=== PATIENT | female | born 1965 | race African-American/Black ===

== ENCOUNTER 2017-05-11 08:04 | Inpatient (IN) | payer MEDICAID ==
[2017-05-05 13:11] LABS: HEMATOCRIT 39.3 % (36.0-47.0); MEAN CORPUSCULAR HEMOGLOBIN 24.7 pg (27.0-33.4); MEAN CORPUSCULAR HGB CONC 33.1 g/dL (32.0-36.0); MEAN CORPUSCULAR VOLUME 75 fl (80-97); PLATELET COUNT 363 10^3/uL (150-450); RED BLOOD COUNT 5.27 10^6/uL (3.72-5.28); RED CELL DISTRIBUTION WIDTH 16.2 % (11.5-14.0); WHITE BLOOD COUNT 7.3 10^3/uL (4.0-10.5)
[2017-05-05 13:12] LABS: APPEARANCE,URINE SLIGHTLY-CLOUDY; BILIRUBIN,URINE NEGATIVE (NEGATIVE); COLOR,URINE YELLOW; GLUCOSE, URINE NEGATIVE (NEGATIVE); KETONES,URINE NEGATIVE (NEGATIVE); LEUKOCYTE ESTERASE,URINE NEGATIVE (NEGATIVE); NITRITE,URINE NEGATIVE (NEGATIVE); PROTEIN,URINE NEGATIVE (NEGATIVE); URINE SPECIFIC GRAVITY 1.025; UROBILINOGEN,URINE NEGATIVE mg/dL (<2.0)
[2017-05-05 13:28] LABS: ALANINE AMINOTRANSFERASE 24 U/L (9-52); ALBUMIN 3.7 g/dL (3.5-5.0); ALKALINE PHOSPHATASE 85 U/L (38-126); ANION GAP 9 (5-19); ASPARTATE AMINO TRANSFERASE 14 U/L (14-36); BILIRUBIN,DIRECT 0.3 mg/dL (0.0-0.4); BILIRUBIN,TOTAL 0.3 mg/dL (0.2-1.3); BLOOD UREA NITROGEN 11 mg/dL (7-20); CALCIUM 9.8 mg/dL (8.4-10.2); CARBON DIOXIDE 27 mmol/L (22-30); CHLORIDE 107 mmol/L (98-107); GLUCOSE 103 mg/dL (75-110); POTASSIUM 4.6 mmol/L (3.6-5.0); SODIUM 143.1 mmol/L (137-145); TOTAL PROTEIN 6.6 g/dL (6.3-8.2)
[~2017-05-11 08:04] MED LIST: ACETAMINOPHEN 100 ML IV ONE; CEFAZOLIN 2 GM/D5W RTU 2 GM/50 ML RTUPB IV PRN; FENTANYL CITRATE INJ/PF 250 MCG/5 ML AMPULE ONE; HYDROMORPHONE HCL INJ/PF 2 MG/ML AMPULE ONE; LACTATED RINGERS 1000 ML IV PRN; LIDOCAINE 0.5% INJ-PF (5 MG/ML) 50 ML SDV SUBCUT PRN; MIDAZOLAM 2 MG/2 ML INJ ONE; PROPOFOL INJ 200 MG/20 ML VIAL IV ONE
[2017-05-11] MEDS ORDERED: OXYCODONE-ACETAMINOPHEN 5-325 MG TABLET PO PRN (08:38)
[2017-05-11] MEDS ORDERED: HYDROMORPHONE HCL INJ/PF 2 MG/ML AMPULE IV PRN (08:38)
[2017-05-11] MEDS ORDERED: ACETAMINOPHEN 100 ML IV PRN (08:38)
[2017-05-11] MEDS ORDERED: PROMETHAZINE HCL INJ 25 MG/1 ML VIAL IV PRN ×2 (08:38→09:32)
[2017-05-11] MEDS ORDERED: FENTANYL CITRATE INJ/PF 100 MCG/2 ML AMPUL IV PRN ×3 (09:32)
[2017-05-11] MEDS ORDERED: MEPERIDINE HCL/PF INJ 25 MG/1 ML DISP.SYRIN IV PRN (09:32)
[2017-05-11] MEDS ORDERED: DIPHENHYDRAMINE HCL 50 MG/ML VIAL IV PRN (09:32)
[2017-05-11] MEDS ORDERED: ALBUTEROL SULFATE HFA (90 MCG/PUFF) 200 PUFF/8.5 GM MDI IH ONE (10:49)
--- NOTE | 2017-05-11 11:02 | Operative Report ---
Operative Report DATE OF SURGERY: 05/11/17 PREOPERATIVE DIAGNOSIS: Fibroid uterus heavy menses patient requests supracervical hysterectomy and bilateral sublingual oophorectomy POSTOPERATIVE DIAGNOSIS: Same OPERATION: Supracervical hysterectomy bilateral sublingual oophorectomy SURGEON: MARIANA PATTON INS[employer] CONSULTANT: MILAGRO FLYNN ANESTHESIA: GA TISSUE REMOVED OR ALTERED: Uterus tubes and ovaries COMPLICATIONS: None ESTIMATED BLOOD LOSS: 1 25 cc INTRAOPERATIVE FINDINGS: Fibroid uterus normal tubes and ovaries omentum appears attached to the umbilicus PROCEDURE: Patient was taken back to the OR and placed in supine position. General anesthesia was induced. She was prepared and draped in a sterile fashion. Her bladder was drained with Cervantes catheter. A low transverse incision was made and carried down level of the fascia. The fascia was nicked in the midline. The fascial incision was extended bilaterally using curved Jaffe scissors. The fascia was off the rectus muscles using sharp and blunt dissection. The rectus muscles were midline peritoneum was entered without incident. Peritoneal incision extended superiorly and inferiorly taking care not to injure bladder. Bowel contents were packed back with 3 moist lap sponges. And a Mobius retractor was placed. This gave good view of the pelvis. The uterus was grasped with a Yesenia thyroid clamp. Next the round ligaments were clamped cauterized and cut using LigaSure device. The anterior leaf the broad ligament was incised creating a bladder flap. The infundibulopelvic pedicles were isolated. The ureters were well away from this field and the infundibulopelvic pedicles were clamped ligated and cut using LigaSure device. The bladder was taken off the anterior aspect cervix using sharp and blunt dissection. The uterine arteries were clamped ligated and cut using LigaSure device. The upper portion of the cardinal ligament was also clamped ligated and cut with LigaSure device. These's uterus was excised free from the cervical stump. This left approximately 1/2 cm of cervix. There was some bleeding at the left side of the cervix from a branch of the uterine artery and this was clamped with a Paige clamp and made hemostatic with 0 Vicryl transfixation suture. The internal cervical stump was cauterized with the Bovie. Angle sutures were placed at 3 and 9:00 using 0 Vicryl. The cervical stump was then closed anterior to posterior with interrupted 0 Vicryl sutures. The pelvis was irrigated and suctioned free of fluid. Hemostasis was assured at all pedicles. The lap sponges and retractor were removed. The anterior abdominal wall peritoneum was closed with a running 2-0 chromic stitch. The subfascial tissues were inspected. The fascia was then closed with a running 0 Vicryl in 2 segments. The wound was irrigated Shon's layer was closed with a 2 0 plain gut stitch and skin closed with a running subcuticular 4-0 undyed Vicryl stitch.
[2017-05-11] MEDS ORDERED: LABETALOL HCL INJ 20 MG/4 ML DISP.SYRIN IV ONE (11:19)
[2017-05-11] MEDS ORDERED: KETOROLAC TROMETHAMINE INJ/PF 30 MG/1 ML SDV ONE (11:45)
[2017-05-11] MEDS ORDERED: KETOROLAC TROMETHAMINE INJ/PF 30 MG/1 ML SDV IV SCH (14:00)
[2017-05-11] MEDS ORDERED: ROCURONIUM BROMIDE INJ 50 MG/5 ML VIAL IV ONE (14:22)
[2017-05-11] MEDS ORDERED: DEXAMETHASONE SOD PHOSPHATE INJ 4 MG/1 ML VIAL ONE (14:22)
[2017-05-11] MEDS ORDERED: GLYCOPYRROLATE INJ 0.4 MG/2 ML VIAL ONE (14:22)
[2017-05-11] MEDS ORDERED: NEOSTIGMINE METHYLSULFATE 10 MG/10 ML VIAL ONE (14:22)
[2017-05-11] MEDS ORDERED: LIDOCAINE 2% INJ-PF (20 MG/ML) 2 ML AMPUL ONE (14:22)
[2017-05-11] MEDS: DOCUSATE SODIUM 100 MG CAPSULE PO SCH ×2 (14:34→17:24)
[2017-05-11 15:09] LABS: ABSOLUTE BASOPHILS # (AUTO) 0.1 10^3/uL (0.0-0.2); ABSOLUTE LYMPHOCYTES (AUTO) 1.1 10^3/uL (0.5-4.7); ABSOLUTE MONOCYTES (AUTO) 0.2 10^3/uL (0.1-1.4); ABSOLUTE NEUT (AUTO) 14.3 10^3/uL (1.7-8.2); BASOPHILS % (AUTO) 0.5 % (0-2); EOSINOPHILS % (AUTO) 0.1 % (0-6); HEMATOCRIT 34.4 % (36.0-47.0); LYMPHOCYTES % (AUTO) 7.2 % (13-45); MEAN CORPUSCULAR HGB CONC 31.9 g/dL (32.0-36.0); MEAN CORPUSCULAR VOLUME 75 fl (80-97); MONOCYTES % (AUTO) 1.3 % (3-13); PLATELET COUNT 345 10^3/uL (150-450); RED BLOOD COUNT 4.57 10^6/uL (3.72-5.28); RED CELL DISTRIBUTION WIDTH 16.5 % (11.5-14.0); SEGMENTED NEUTROPHILS % (AUTO) 90.9 % (42-78); TOTAL CELLS COUNTED % (AUTO) 100 %; WHITE BLOOD COUNT 15.7 10^3/uL (4.0-10.5)
[2017-05-11] MEDS: RINGERS SOLUTION,LACTATED 1,000 ML IV PRN (16:21)
[2017-05-11] MEDS: OXYCODONE-ACETAMINOPHEN 5-325 MG TABLET PO PRN (17:25)
[2017-05-11] MEDS: KETOROLAC TROMETHAMINE INJ/PF 30 MG/1 ML SDV IV SCH (20:24)
[2017-05-11] MEDS: LABETALOL HCL 200 MG TABLET PO SCH (22:11)
[2017-05-12] MEDS: RINGERS SOLUTION,LACTATED 1,000 ML IV PRN (00:36)
[2017-05-12] MEDS: KETOROLAC TROMETHAMINE INJ/PF 30 MG/1 ML SDV IV SCH ×2 (03:44→13:21)
[2017-05-12] MEDS: OXYCODONE-ACETAMINOPHEN 5-325 MG TABLET PO PRN ×3 (05:34→20:10)
[2017-05-12 07:33] LABS: HEMOGLOBIN 9.4 g/dL (12.0-15.5); MEAN CORPUSCULAR HEMOGLOBIN 24.3 pg (27.0-33.4); MEAN CORPUSCULAR HGB CONC 32.5 g/dL (32.0-36.0); MEAN CORPUSCULAR VOLUME 75 fl (80-97); PLATELET COUNT 294 10^3/uL (150-450); RED BLOOD COUNT 3.88 10^6/uL (3.72-5.28); RED CELL DISTRIBUTION WIDTH 16.5 % (11.5-14.0); WHITE BLOOD COUNT 12.6 10^3/uL (4.0-10.5)
--- NOTE | 2017-05-12 08:16 | PDOC PROGRESS REPORT ---
Subjective Progress Note for:: 05/12/17 Subjective:: She reports passing gas today. Her pain is controlled. Reason For Visit: N92.0 EXCESSIVE AND FREQUENT MENSTRUATION WITH REG Physical Exam - Physical Exam Vital Signs: Temp Pulse Resp BP Pulse Ox 98.3 F 48 L 16 134/74 H 89 L 05/12/17 03:38 05/12/17 03:38 05/12/17 03:38 05/12/17 03:38 05/12/17 03:38 Intake & Output 05/11/17 05/12/17 05/13/17 06:59 06:59 06:59 Intake Total 4480 Output Total 2900 Balance 1580 Weight 101.6 kg General appearance: PRESENT: no acute distress, well-developed, well-nourished Head exam: PRESENT: atraumatic - Positive bowel sounds. Dressing is dry., normocephalic Result Laboratory Results: 05/12/17 06:44 05/05/17 12:20 05/11/17 05/12/17 14:54 06:44 WBC 15.7 H 12.6 H RBC 4.57 3.88 Hgb 11.0 L 9.4 L Hct 34.4 L 29.0 L MCV 75 L 75 L MCH 24.0 L 24.3 L MCHC 31.9 L 32.5 RDW 16.5 H 16.5 H Plt Count 345 294 Seg Neutrophils % 90.9 H Lymphocytes % 7.2 L Monocytes % 1.3 L Eosinophils % 0.1 Basophils % 0.5 Absolute Neutrophils 14.3 H Absolute Lymphocytes 1.1 Absolute Monocytes 0.2 Absolute Eosinophils 0.0 Absolute Basophils 0.1 Impressions: POD number one. Remove paz, saline lock IV Assessment & Plan - Diagnosis (1) Fibroid (bleeding) (uterine) Qualifiers: Uterine leiomyoma location: intramural Qualified Code(s): D25.1 - Intramural leiomyoma of uterus Is this a current diagnosis for this admission?: Yes - Time Time Spent with patient: 15-24 minutes Anticipated discharge: Home Within: within 24 hours
[2017-05-12] MEDS: LABETALOL HCL 200 MG TABLET PO SCH (09:50)
[2017-05-12] MEDS: DOCUSATE SODIUM 100 MG CAPSULE PO SCH ×2 (09:52→17:45)
[2017-05-12] MEDS ORDERED: IBUPROFEN 800 MG TABLET PO SCH (12:00)
[2017-05-12] MEDS: IBUPROFEN 800 MG TABLET PO SCH (17:45)
[2017-05-13] MEDS: IBUPROFEN 800 MG TABLET PO SCH ×2 (00:59→06:11)
[2017-05-13] MEDS: OXYCODONE-ACETAMINOPHEN 5-325 MG TABLET PO PRN ×2 (02:44→10:02)
[2017-05-13] MEDS: DOCUSATE SODIUM 100 MG CAPSULE PO SCH (09:48)
--- NOTE | 2017-05-13 09:53 | PDOC DISCHARGE SUMMARY ---
General - Admit/Disc Date/PCP Admission Date/Primary Care Provider: 05/11/17 08:04 MYRNA MARRERO MD She was admitted for hysterectomy for fibroids. Discharge Date: 05/13/17 - Discharge Diagnosis (1) Fibroid (bleeding) (uterine) Is this a current diagnosis for this admission?: Yes - Additional Information Home Medications: Oxycodone HCl/Acetaminophen [Percocet 5-325 mg Tablet] 1 - 2 tab PO Q4 PRN #15 tablet 10/14/12 Ibuprofen [Advil] 200 mg PO PRN PRN 05/05/17 Naproxen [Naprosyn] 500 mg PO PRN PRN 05/05/17 Tramadol HCl [Ultram] 50 mg PO PRN PRN 05/05/17 Zolpidem Tartrate [Ambien] 10 mg PO PRN PRN 05/05/17 History of Present Illness History of Present Illness: TEMITOPE SAWYER is a 51 year old female She requests a supracervical hysterectomy for fibroids. Hospital Course Hospital Course: The hysterectomy was completed. She recovered and was able to tolerate a regular diet and pain meds. She is ready to go home today. Physical Exam - Physical Exam Vital Signs: Temp Pulse Resp BP Pulse Ox 98.5 F 85 22 H 136/69 H 95 05/13/17 07:38 05/13/17 07:38 05/13/17 07:38 05/13/17 07:38 05/13/17 07:38 Intake & Output 05/12/17 05/13/17 05/14/17 06:59 06:59 06:59 Intake Total 4480 1000 Output Total 2900 300 Balance 1580 700 Weight 101.6 kg General appearance: PRESENT: no acute distress - Dressing is dry. Abdomen is soft and nontender., well-developed, well-nourished Result Laboratory Results: 05/12/17 06:44 05/05/17 12:20 Impressions: She is ready to go home. Plan Discharge Plan: Home to rest. Followup later this week. Time Spent: Less than 30 Minutes
[2017-05-13] MEDS ORDERED: INFLUENZA ADLT QUAD (36MOS+) 2017-18 VAC 0.5 ML SYR IM PRN (10:54)
[2017-05-13 11:00] VITALS: BP 157/94
== END 2017-05-13 11:35 | disposition home or self-care (01) | DRG 743 ==
LOC: INOR 08:04 → 2S 12:51
PROVIDERS: ADMIT Obstetrics & Gynecology; ATTEND Obstetrics & Gynecology
PROC: 0UT70ZZ Resection of Bilateral Fallopian Tubes, Open Approach (ICD-10-PCS; 2017-05-11)
PROC: 0UT20ZZ Resection of Bilateral Ovaries, Open Approach (ICD-10-PCS; 2017-05-11)
PROC: 0UT90ZL Resection of Uterus, Supracervical, Open Approach (ICD-10-PCS; principal; 2017-05-11 07:30)
DX: D25.1 Intramural leiomyoma of uterus (principal); N92.0 Excessive and frequent menstruation with regular cycle; F17.210 Nicotine dependence, cigarettes, uncomplicated
CPT/HCPCS: 36415; 80053; 81001; 81025; 840; 85025; 85027; 86850; 86900; 86901; 88307; J0131; J0690; J1100; J1170; J1885; J2250; J2550; J2704; J3010; J3490; J7120

== ENCOUNTER 2017-12-01 08:07 | Day surgery (SDC) | payer MEDICAID ==
[2017-12-01] MEDS ORDERED: MIDAZOLAM 2 MG/2 ML INJ ONE (10:13)
[2017-12-01] MEDS ORDERED: PROPOFOL INJ 200 MG/20 ML VIAL IV ONE (10:13)
[2017-12-01] MEDS ORDERED: MEPERIDINE HCL/PF INJ 25 MG/1 ML DISP.SYRIN IV PRN (10:55)
[2017-12-01] MEDS ORDERED: PROMETHAZINE HCL INJ 25 MG/1 ML VIAL IV PRN ×2 (10:55)
[2017-12-01] MEDS ORDERED: DIPHENHYDRAMINE HCL 50 MG/ML VIAL IV PRN (10:55)
[2017-12-01] MEDS ORDERED: FENTANYL CITRATE INJ/PF 100 MCG/2 ML AMPUL IV PRN ×3 (10:55)
[2017-12-01] MEDS ORDERED: SIMETHICONE 80 MG TAB.CHEW PO PRN (11:30)
[2017-12-01] MEDS ORDERED: PROMETHAZINE HCL INJ 25 MG/1 ML VIAL INJ PRN (11:30)
[2017-12-01] MEDS ORDERED: DEXTROSE 5%-1/2 NORMAL SALINE 1,000 ML IV PRN (11:30)
[2017-12-01] MEDS ORDERED: ACETAMINOPHEN 325 MG TABLET PO PRN (11:30)
--- NOTE | 2017-12-01 12:22 | Operative Report ---
Operative Report DATE OF SURGERY: 12/01/17 Operative Report: The risks, benefits and alternatives of the procedure including the risks of bleeding, perforation requiring surgery are explained to the patient in detail and informed consent is obtained. The patient is taken back to the operating room and placed in the left, lateral decubital position. Timeout was called. Propofol medication is administered. A rectal examination is done which did not reveal any masses, tears or fissures. The scope was then carefully advanced all the way to the cecum. The cecum was identified by the usual anatomical landmarks including the ileocecal valve as well as the appendiceal office. Photodocumentation is obtained. The scope was then sequentially pulled back via the various segments of the colon including the ascending colon , hepatic flexure, transverse colon, splenic flexure, descending colon and finally into the rectosigmoid portions of the colon. Retroflexion maneuver is performed. PREOPERATIVE DIAGNOSIS: Change in bowel habits. Colorectal cancer screening POSTOPERATIVE DIAGNOSIS: Diverticulosis. Internal hemorrhoids. Right side colon. Inflammation status post biopsy rule out lymphocytic, collagenous colitis. OPERATION: Colonoscopy with biopsy SURGEON: RUTHY TODD ANESTHESIA: LMAC TISSUE REMOVED OR ALTERED: As noted above. COMPLICATIONS: None. ESTIMATED BLOOD LOSS: None. INTRAOPERATIVE FINDINGS: As noted above. PROCEDURE: Patient tolerated the procedure well. No immediate postprocedure comp occasions are noted. She discharged in good condition. Discharge date 12/01/2017. Discharge diet: Regular. Discharge activity: Regular. 2-3 week follow-up to discuss findings. Patient is instructed to go to the emergency room or call the office should there be any further problems or questions. We will wait on pathology 5 year surveillance colonoscopy.
[2017-12-01 12:43] VITALS: BP 135/77
--- NOTE | 2017-12-01 13:00 | EKG REPORT ---
SEVERITY:- ABNORMAL ECG - SINUS RHYTHM LEFT VENTRICULAR HYPERTROPHY : Confirmed by: Enrrique Rose MD 01-Dec-2017 12:59:25
== END 2017-12-01 12:41 | disposition home or self-care (01) ==
LOC: OROUT 08:07
PROVIDERS: ATTEND Internal Medicine Gastroenterology
DX: K57.30 Diverticulosis of large intestine without perforation or abscess without bleeding (principal); K64.8 Other hemorrhoids; K52.9 Noninfective gastroenteritis and colitis, unspecified; E78.5 Hyperlipidemia, unspecified; F17.210 Nicotine dependence, cigarettes, uncomplicated; M19.90 Unspecified osteoarthritis, unspecified site; E55.9 Vitamin D deficiency, unspecified; E66.9 Obesity, unspecified; Z68.37 Body mass index [BMI] 37.0-37.9, adult; Z79.891 Long term (current) use of opiate analgesic; Z79.899 Other long term (current) drug therapy
CPT/HCPCS: 45380; 36415; 84132; 88305 ×2; 93005; 93010; J2250; J2704; 811